=== PATIENT | female | born 1970 | race American Indian/Alaskan Native ===

== ENCOUNTER 2017-02-11 17:36 | Emergency (ER) | payer SELFPAY ==
[2017-02-11 17:52] VITALS: BP 220/125
--- NOTE | 2017-02-11 18:22 | Emergency Department Report ---
Entered by AGUSTÍN AMBROCIO, acting as scribe for ASHLEY DELGADO NP. Chief Complaint: Dental/Oral Stated Complaint: TOOTHACHE Time Seen by Provider: 02/11/17 18:08 - HPI History of Present Illness: 46 y/o female presents c/o left lower side toothache that worsened today. Additional Sx include sinus pain but pt denies fever. Medication includes hydrochlorothiazide. l lower dental and l face pain htn on hctz severe pain no neuro or focal deficits NAD VSS Ambulatory - ROS Review of Systems: as noted in HPI - Exam Vital Signs: Vital Signs 02/11/17 17:48 Temperature 98.5 F Pulse Rate 86 Respiratory 20 Rate Blood Pressure 220/125 O2 Sat by Pulse 99 Oximetry Physical Exam: as noted in HPI MSE screening note: Focused history and physical exam performed. Due to findings the following was ordered: ED Disposition for MSE Condition: Stable This documentation as recorded by the scribe,AGUSTÍN AMBROCIO,accurately reflects the service I personally performed and the decisions made by ,ASHLEY DELGADO NP.
== END 2017-02-11 23:03 | disposition left against medical advice (07) ==
LOC: ED 17:36
DX: K08.89 Other specified disorders of teeth and supporting structures (principal); Z53.21 Procedure and treatment not carried out due to patient leaving prior to being seen by health care provider
CPT/HCPCS: 93005; 93010

== ENCOUNTER 2021-10-30 07:24 | Emergency (ER) | payer MEDICAID ==
[2021-10-30] MEDS ORDERED: IPRATROPIUM/ALBUTEROL SULFATE 3 ML AMPUL.NEB IH ONE ×2 (07:43→12:08)
--- NOTE | 2021-10-30 08:43 | XRay Report ---
CHEST 2 VIEWS INDICATION / CLINICAL INFORMATION: Chest Pain. COMPARISON: 09/02/2018 FINDINGS: SUPPORT DEVICES: None. HEART / MEDIASTINUM: No significant abnormality. LUNGS / PLEURA: There are patchy bilateral pulmonary opacities. ADDITIONAL FINDINGS: No significant additional findings. IMPRESSION: 1. Patchy bilateral pulmonary opacities likely indicating multifocal pneumonia. Signer Name: Solitario De Los Santos MD Signed: 10/30/2021 8:39 AM Workstation Name: [id number]
[2021-10-30 08:57] LABS: Basophils % (Auto) 0.5 % (0.0-1.8); Eosinophils % (Auto) 0.8 % (0.0-4.3); Hematocrit 36.4 % (30.3-42.9); Hemoglobin 11.6 gm/dl (10.1-14.3); Lymphocytes # (Auto) 1.4 K/mm3 (1.2-5.4); Lymphocytes % (Auto) 28.9 % (13.4-35.0); Mean Corpuscular HGB Conc 32 % (30-34); Mean Corpuscular Volume 81 fl (79-97); Monocytes # (Auto) 0.5 K/mm3 (0.0-0.8); Monocytes % (Auto) 9.7 % (0.0-7.3); Platelet Count 284 K/mm3 (140-440); Red Blood Count 4.52 M/mm3 (3.65-5.03); Red Cell Distribution Width 17.4 % (13.2-15.2)
[2021-10-30 09:06] LABS: INR 0.86 (0.87-1.13)
[2021-10-30 09:07] LABS: Partial Thromboplastin Time 32.6 Sec. (24.2-36.6)
[2021-10-30 09:21] LABS: Alanine Aminotransferase 30 units/L (7-56); Albumin 3.9 g/dL (3.9-5); BUN/Creatinine Ratio 14; Blood Urea Nitrogen 18 mg/dL (7-17); Calcium 9.2 mg/dL (8.4-10.2); Hemolysis Index 1
--- NOTE | 2021-10-30 11:54 | Emergency Department Report ---
ED Shortness of Breath HPI - General Chief Complaint: Dyspnea/Respdistress Stated Complaint: COUGH/CONGESTION Time Seen by Provider: 10/30/21 07:39 Source: patient Mode of arrival: Ambulatory Limitations: No Limitations - History of Present Illness Initial Comments: This is a 51-year-old female nontoxic, well nourished in appearance, no acute signs of distress presents to the ED with c/o of chest tightness, shortness of breath and productive cough times several days. Patient stated she is COVID vaccinated as of last year. Patient denies any COVID swabs prior to ED visit today. Patient denies any other symptoms or complaints. Patient denies any chest pains, hemoptysis, fever, chills, nausea, vomiting, headache, stiff neck, numbness, tingling, abdominal pain. Patient denies pleuritic chest pain. Patient denies any recent travels or long car rides. Patient denies any recent surgeries or any sick contacts. Patient stated allergies to PCN. MD Complaint: shortness of breath, cough -: days(s) Consistency: constant Improves With: nothing Worsens With: nothing Associated Symptoms: cough, other (chest tightness) Treatments Prior to Arrival: none - Related Data Home Oxygen Therapy: No Previous Rx's Medication Instructions Recorded Last Taken Type Aspirin 81 mg PO QDAY #30 tab.chew 09/02/18 Unknown Rx Losartan [Cozaar] 100 mg PO QDAY #30 tablet 09/02/18 Unknown Rx hydroCHLOROthiazide [HCTZ] 25 mg PO QDAY #30 tablet 09/02/18 Unknown Rx Azithromycin [Zithromax Z-KATHRYN] 250 mg PO DAILY #6 tab 10/30/21 Unknown Rx Allergies Allergy/AdvReac Type Severity Reaction Status Date / Time Penicillins Allergy Rash Verified 11/29/15 00:08 ED Review of Systems ROS: Stated complaint: COUGH/CONGESTION Other details as noted in HPI Comment: All other systems reviewed and negative Constitutional: denies: chills, fever Eyes: denies: eye pain, eye discharge, vision change ENT: denies: ear pain, throat pain Respiratory: cough, shortness of breath. denies: orthopnea, SOB with exertion, SOB at rest, wheezing Cardiovascular: denies: chest pain, palpitations, dyspnea on exertion, orthopnea, edema, syncope, paroxysmal nocturnal dyspnea Endocrine: no symptoms reported Gastrointestinal: denies: abdominal pain, nausea, diarrhea Genitourinary: denies: urgency, dysuria, discharge Musculoskeletal: denies: back pain, joint swelling, arthralgia Skin: denies: rash, lesions Neurological: denies: headache, weakness, paresthesias Psychiatric: denies: anxiety, depression Hematological/Lymphatic: denies: easy bleeding, easy bruising ED Past Medical Hx - Past Medical History Previous Medical History?: Yes Hx Hypertension: Yes Additional medical history: dental caries - Social History Smoking Status: Never Smoker Substance Use Type: None - Medications Home Medications: Home Medications Medication Instructions Recorded Confirmed Last Taken Type Aspirin 81 mg PO QDAY #30 tab.chew 09/02/18 Unknown Rx Losartan [Cozaar] 100 mg PO QDAY #30 tablet 09/02/18 Unknown Rx hydroCHLOROthiazide [HCTZ] 25 mg PO QDAY #30 tablet 09/02/18 Unknown Rx Azithromycin [Zithromax Z-KATHRYN] 250 mg PO DAILY #6 tab 10/30/21 Unknown Rx ED Physical Exam - General Limitations: No Limitations General appearance: alert, in no apparent distress - Head Head exam: Present: atraumatic, normocephalic - Eye Eye exam: Present: normal appearance, EOMI - ENT ENT exam: Present: normal exam, normal orophraynx - Neck Neck exam: Present: normal inspection, full ROM. Absent: tenderness, meningismus, lymphadenopathy - Respiratory Respiratory exam: Present: normal lung sounds bilaterally. Absent: respiratory distress, wheezes, rales, rhonchi, stridor, chest wall tenderness, accessory muscle use, decreased breath sounds, prolonged expiratory - Cardiovascular Cardiovascular Exam: Present: normal rhythm, tachycardia, normal heart sounds. Absent: bradycardia, irregular rhythm, systolic murmur, diastolic murmur, rubs, gallop - GI/Abdominal GI/Abdominal exam: Present: soft. Absent: distended, tenderness - Extremities Exam Extremities exam: Present: normal inspection, full ROM, normal capillary refill - Back Exam Back exam: Present: normal inspection, full ROM - Neurological Exam Neurological exam: Present: alert, oriented X3, normal gait - Psychiatric Psychiatric exam: Present: normal affect, normal mood - Skin Skin exam: Present: warm, dry, intact, normal color. Absent: rash ED Course Vital Signs 10/30/21 10/30/21 10/30/21 07:36 12:59 13:01 Temperature 99 F 99.7 F H Pulse Rate 107 H 87 Respiratory 16 20 Rate Blood Pressure 183/115 133/87 [Right] O2 Sat by Pulse 97 97 97 Oximetry - Reevaluation(s) Reevaluation #1: 10/30/21 11:53 Patient is speaking in full sentences with no signs of distress noted. Reevaluation #2: 10/30/21 13:51 Posttreatment and there is no wheezing upon auscultation. Patient stated feels much better and SOB has resolved. ED Medical Decision Making - Lab Data Result diagrams: 10/30/21 08:27 10/30/21 08:27 Lab Results 10/30/21 10/30/21 10/30/21 Range/Units 08:27 08:27 08:27 WBC 4.7 (4.5-11.0) K/mm3 RBC 4.52 (3.65-5.03) M/mm3 Hgb 11.6 (10.1-14.3) gm/dl Hct 36.4 (30.3-42.9) % MCV 81 (79-97) fl MCH 26 L (28-32) pg MCHC 32 (30-34) % RDW 17.4 H (13.2-15.2) % Plt Count 284 (140-440) K/mm3 Lymph % (Auto) 28.9 (13.4-35.0) % Gage % (Auto) 9.7 H (0.0-7.3) % Eos % (Auto) 0.8 (0.0-4.3) % Baso % (Auto) 0.5 (0.0-1.8) % Lymph # (Auto) 1.4 (1.2-5.4) K/mm3 Gage # (Auto) 0.5 (0.0-0.8) K/mm3 Eos # (Auto) 0.0 (0.0-0.4) K/mm3 Baso # (Auto) 0.0 (0.0-0.1) K/mm3 Seg Neutrophils % 60.1 (40.0-70.0) % Seg Neutrophils # 2.8 (1.8-7.7) K/mm3 PT 12.7 (12.2-14.9) Sec. INR 0.86 L (0.87-1.13) APTT 32.6 (24.2-36.6) Sec. D-Dimer 1062.76 H (0-234) ng/mlDDU Sodium 140 (137-145) mmol/L Potassium 4.2 (3.6-5.0) mmol/L Chloride 100.8 (98-107) mmol/L Carbon Dioxide 25 (22-30) mmol/L Anion Gap 18 mmol/L BUN 18 H (7-17) mg/dL Creatinine 1.3 H (0.6-1.2) mg/dL Estimated GFR 52 ml/min BUN/Creatinine Ratio 14 % Glucose 99 (65-100) mg/dL Calcium 9.2 (8.4-10.2) mg/dL Magnesium (1.7-2.3) mg/dL Total Bilirubin 0.30 (0.1-1.2) mg/dL AST 51 H (5-40) units/L ALT 30 (7-56) units/L Alkaline Phosphatase 74 (35-129) units/L Troponin T < 0.010 (0.00-0.029) ng/mL Total Protein 7.7 (6.3-8.2) g/dL Albumin 3.9 (3.9-5) g/dL Albumin/Globulin Ratio 1.0 % 10/30/21 10/30/21 Range/Units 08:27 11:33 WBC (4.5-11.0) K/mm3 RBC (3.65-5.03) M/mm3 Hgb (10.1-14.3) gm/dl Hct (30.3-42.9) % MCV (79-97) fl MCH (28-32) pg MCHC (30-34) % RDW (13.2-15.2) % Plt Count (140-440) K/mm3 Lymph % (Auto) (13.4-35.0) % Gage % (Auto) (0.0-7.3) % Eos % (Auto) (0.0-4.3) % Baso % (Auto) (0.0-1.8) % Lymph # (Auto) (1.2-5.4) K/mm3 Gage # (Auto) (0.0-0.8) K/mm3 Eos # (Auto) (0.0-0.4) K/mm3 Baso # (Auto) (0.0-0.1) K/mm3 Seg Neutrophils % (40.0-70.0) % Seg Neutrophils # (1.8-7.7) K/mm3 PT (12.2-14.9) Sec. INR (0.87-1.13) APTT (24.2-36.6) Sec. D-Dimer (0-234) ng/mlDDU Sodium (137-145) mmol/L Potassium (3.6-5.0) mmol/L Chloride (98-107) mmol/L Carbon Dioxide (22-30) mmol/L Anion Gap mmol/L BUN (7-17) mg/dL Creatinine (0.6-1.2) mg/dL Estimated GFR ml/min BUN/Creatinine Ratio % Glucose (65-100) mg/dL Calcium (8.4-10.2) mg/dL Magnesium 2.00 (1.7-2.3) mg/dL Total Bilirubin (0.1-1.2) mg/dL AST (5-40) units/L ALT (7-56) units/L Alkaline Phosphatase (35-129) units/L Troponin T < 0.010 (0.00-0.029) ng/mL Total Protein (6.3-8.2) g/dL Albumin (3.9-5) g/dL Albumin/Globulin Ratio % - Radiology Data [facility] [address] [place] [address] XRay Report Signed Patient: LUIS E COSBY MR#: [id number] 4 : 1970 Acct:[id number] Age/Sex: 51 / F ADM Date: 10/30/21 Loc: ED Attending Dr: Ordering Physician: PAUL CORBIN NP Date of Service: 10/30/21 Procedure(s): XR chest routine 2V Accession Number(s): [id number] cc: PAUL CORBIN NP Fluoro Time In Minutes: CHEST 2 VIEWS INDICATION / CLINICAL INFORMATION: Chest Pain. CO MPARISON: 09/02/2018 FINDINGS: SUPPORT DEVICES: None. HEART / MEDIASTINUM: No significant abnormality. LUNGS / PLEURA: There are patchy bilateral pulmonary opacities. ADDITIONAL FINDINGS: No significant additional findings. IMPRESSION: 1. Patchy bilateral pulmonary opacities likely indicating multifocal pneumonia. Signer Name: Solitario De Los Santos MD Signed: 10/30/2021 8:39 AM Workstation Name: [id number] Transcribed By: ROCIO Dictated By: Solitario De Los Santos MD Electronically Authenticated By: Solitario De Los Santos MD Signed Date/Time: 10/30/21838 DD/ 8 TD/TT: - Medical Decision Making This is a 51-year-old female that presents with PNA with suspected covid. Patient is stable and was examined by me. Labs obtained and shows d-dimmer elevated. A CTA ordered has been ordered but patient refused. I educated patient of my concerns and the importance of getting a CTA to rule out further complications such as pulmonary embolism but patient still refused. Patient received levofloxacin IV for pneumonia. I will discharge patient with azithromycin pack due to PNA findings. Patient also received a breathing treatment which she stated symptoms of shortness of breath have resolved and subsided. Labs has been obtained and EKG does not show any significant abnormalities. Negative troponin x2. 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 At time of signing AMA, the patient does not seem toxic or ill in appearance. No acute signs of distress noted. No further questions noted by the patient. The patient was evaluated in the emergency department for symptoms described in the history of present illness. He/she was evaluated in the context of the global COVID-19 pandemic, which necessitated consideration that the patient might be at risk for infection with the virus that causes COVID-19. Institutional protocols and algorithms that pertain to the evaluation of patients at risk for COVID-19 are in a state of rapid change based on information released by regulatory bodies including the CDC and federal and state organizations. These policies and algorithms were followed during the patient's care in the emergency department. Please note that these policies, procedures and recommendations changed on a rapid basis. Critical care attestation.: If time is entered above; I have spent that time in minutes in the direct care of this critically ill patient, excluding procedure time. ED Disposition Clinical Impression: Suspected COVID-19 virus infection, Elevated d-dimer PNA (pneumonia) Qualifiers: Pneumonia type: due to unspecified organism Laterality: bilateral Lung location: unspecified part of lung Qualified Code(s): J18.9 - Pneumonia, unspecified organism Disposition: 07 LEFT AGAINST MEDICAL ADVICE Is pt being admited?: No Does the pt Need Aspirin: No Condition: Undetermined Instructions: COVID-19 Frequently Asked Questions, Community-Acquired Pneumonia, Adult, Bacterial Pneumonia (ED) Additional Instructions: Follow-up with a primary care/field artillery cannoneer doctor in 2 days or if symptoms worsen and continue return to emergency room as soon as possible. Your condition may be serious as instructed and educated today in the ER but you decided to leave AGAINST MEDICAL ADVICE. It is highly recommended to see a provider as soon as possible to rule out serious complications that was described to you during your ED stay. Your symptoms appear most consistent with the current pandemic, COVID-19. Despite your previous negative COVID-19 test, I do recommend repeat outpatient Covid 19 testing. In the meantime, isolate/quarantine yourself and stay away from anyone who is elderly, immunocompromised or chronically ill. Please see your nearest health department or primary care doctor that you are referred to for COVID testing. Increased rest, hydration, and take [id number] Tylenol as directed from instructions label for pain/fever episode. Prescriptions: Azithromycin [Zithromax Z-KATHRYN] 250 mg PO DAILY #6 tab Referrals: PRIMARY CAREMD [Primary Care Provider] - 3-5 Days Forms: AMA Form Time of Disposition: 14:10
[2021-10-30 13:01] VITALS: BP 133/87
--- NOTE | 2021-10-31 10:05 | Electrocardiograph Report ---
[facility] Test Date: 2021-10-30 Test Time: 09:52:16 Pat Name: LUIS E COSBY Department: Room: Gender: F Mother Baby Rn: TATYANA : 1970 Requested By: PAUL CORBIN Order Number: [id number] Reading MD: John Britton Measurements Intervals [place] Rate: 95 P: 43 [place]: 184 QRS: 27 QRSD: 86 T: -40 QT: 349 QTc: 439 Interpretive Statements Sinus rhythm Consider left ventricular hypertrophy No previous ECG available for comparison Electronically Signed On 10-31-2021 10:04:59 EST by John Britton
== END 2021-10-30 14:26 | disposition left against medical advice (07) ==
LOC: ED 07:24
DX: Z20.822 Contact with and (suspected) exposure to COVID-19 (principal); J18.9 Pneumonia, unspecified organism; R79.1 Abnormal coagulation profile; I10 Essential (primary) hypertension; Z88.0 Allergy status to penicillin
CPT/HCPCS: 36415; 71046; 80053; 83735; 84484; 85025; 85379; 85610; 85730; 93005; 94640; 96365; 99284; J1956; 94644